=== PATIENT | female | born 1990 | race Caucasian/White ===

== ENCOUNTER 2022-04-02 15:41 | Emergency (ER) | payer OTHER, SELFPAY ==
[2022-04-02 15:51] VITALS: BP 144/86; PULSE 83; RESP 16; TEMP 36.4; O2SAT 100
--- NOTE | 2022-04-02 18:58 | PC.NURSE ---
provider performed pelvic exam and IUD removal with telegraphic typewriter operator chief assist. IUD intact. no complaints by patient.
--- NOTE | 2022-04-02 19:11 | ED.FEMALEGU ---
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 She had a place approximately 2 weeks ago ever since then she has had pelvic cramping and vaginal bleeding she talk to her CLIENT SOLUTIONS DIRECTOR physician recommended she continue to take it and was planning on starting her on additional control for her vaginal bleeding. Patient has had success with control with NuvaRing would like to return to that. Her pain in her pelvis is crampy, constant, no clear aggravating or alleviating factors, no radiation. She denies any fevers chills nausea vomiting diarrhea constipation or urinary symptoms Related Data Allergies Allergy/AdvReac Type Severity Reaction Status Date / Time No Known Allergies Allergy Unverified 04/02/22 17:40 Review of Systems Review of Systems: CONSTITUTIONAL: Denies fever, chills, or sweats. EYES: Denies visual changes, redness, or discharge. ENT: Denies rhinorrhea, congestion, sore throat, or otalgia. CARDIOVASCULAR: Denies chest pain, palpitations, or edema. RESPIRATORY: Denies cough or dyspnea. GASTROINTESTINAL: Denies nausea, vomiting, or diarrhea. GENITOURINARY: Denies dysuria or hematuria. SKIN: Denies rash or itching. MUSCULOSKELETAL: Denies back pain, joint pain, or myalgia. NEUROLOGIC: Denies headache, numbness, dizziness, or weakness. PSYCHIATRIC: Denies anxiety or depression. All systems reviewed & are unremarkable except as noted in HPI and below Exam Narrative: GENERAL: Well-appearing, well-nourished, and in no acute distress. HEAD: Normocephalic, atraumatic. EYES: PERRLA and EOMI. ENT: Nares clear, no rhinorrhea or epistaxis. Mucous membranes moist. NECK: Supple. No masses. 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 No edema. SKIN: Warm, dry, no rash. NEURO: No focal deficits. Alert and oriented x3. PSYCH: Normal mood and affect. Course Vital Signs Vital signs: Vital Signs Temperature 36.4 C 04/02/22 15:51 Pulse Rate 83 04/02/22 15:51 Respiratory Rate 16 04/02/22 15:51 Blood Pressure 144/86 H 04/02/22 15:51 Pulse Oximetry 100 04/02/22 15:51 Oxygen Delivery Room Air 04/02/22 15:51 Temperature 36.4 C 04/02/22 15:51 Pulse Rate 64 04/02/22 19:21 Respiratory Rate 16 04/02/22 19:21 Blood Pressure 119/77 04/02/22 19:21 Pulse Oximetry 98 04/02/22 19:21 Oxygen Delivery Room Air 04/02/22 15:51 Procedures Other Procedure Procedure 1: Other Procedure: Patient requested IUD removal. IUD strings were visualized gentle traction used and IUD removed without incident patient tolerated the procedure well and was scant bleeding from the cervical os after procedure. No cervical injuries appreciated. MDM - Female Genitourinary MDM Narrative Medical decision making narrative: H&P as above, vss, pt looks clinically well, exam with small amount of blood in vaginal vault, labs/img considered, symptomatic relief available as needed, on reevaluation pt continues to looks clinically well. Suspect symptoms related to IUD given patient's time course which was removed today patient felt improved dns significant hemorrhage, perforation. plan to tx/monitor as op w/ pcm f/u findings/plan discussed with pt, pt agree/comfortable with plan, return precautions given Discharge Plan Discharge Clinical Impression: Encounter for IUD removal Condition: Improved Instructions: Intrauterine Device (DC) Additional Instructions: Please return if your symptoms worsen or fail to improve. If you develop a fever, can not eat/drink anything or if you have any other con
[2022-04-02 19:21] VITALS: BP 119/77; PULSE 64; RESP 16; O2SAT 98
== END 2022-04-02 19:22 | disposition home or self-care (01) ==
PROVIDERS: Emergency Provider Emergency Medicine
DX: Z30.432 Encounter for removal of intrauterine contraceptive device (principal)
CPT/HCPCS: 99282

== ENCOUNTER 2023-10-05 10:51 | Emergency (ER) | payer OTHER, SELFPAY ==
--- NOTE | ~2023-10-05 | CT_ITS ---
EXAMINATION: CT abdomen pelvis w con DATE: 10/05/2023 13:02 INDICATION: Right lower quadrant abdominal pain TECHNIQUE: Computed tomography (CT) of the abdomen and pelvis was performed with 100 cc Omnipaque 350 intravenous contrast. The dose-length product was 590.07 mGy-cm. Automated exposure control and iter ative reconstruction technique were employed. COMPARISON: CT dated 05/22/2020. FINDINGS: Lung bases unremarkable. Heart size normal. No significant pleural or pericardial effusion. Fatty infiltration of the liver. Small subcentimeter liver cyst. The spleen, pancreas, adrenal gland s and kidneys are unremarkable. Normal appendix. Trace free fluid in the pelvis. Nonobstructive bowel gas pattern. Moderate colonic fecal loading. No significant vascular abnormality. No lymphadenopathy . Gallbladder is present. No free air. No acute osseous abnormality. IMPRESSION: 1. No acute abdominal abnormality. Reviewed, dictated and finalized at location B. 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
[2023-10-05 11:08] VITALS: BP 125/84; PULSE 101; RESP 18; TEMP 36.7; O2SAT 100
--- NOTE | 2023-10-05 12:11 | ED.ABDPAIN ---
HPI - Abdominal Pain General Chief Complaint: Abdominal Pain Stated Complaint: abd pain, n/v Time Seen by Provider: 10/05/23 11:56 History of Present Illness HPI narrative: Patient is a 33-year-old female with no past medical history here today with abdominal pain. She states that it began yesterday morning and is located across her mid abdomen and into the right lower quadrant. She notes it is associated with decreased appetite, last solid food intake was yesterday, last p.o. intake was a couple sips of water around 7:00 a.m. this morning today. She has had multiple episodes of vomiting, nonbloody. Her last bowel movement was yesterday. No prior abdominal surgeries in the past. No associated diarrhea. She did have a fever at home, T-max 102? F. No associated cough, congestion, urinary symptoms. No vaginal bleeding or discharge. Last menstrual period was 09/16/2023. She did go to an urgent care prior to presentation here in the referred her into the emergency department for further evaluation and testing. Related Data Allergies Allergy/AdvReac Type Severity Reaction Status Date / Time No Known Allergies Allergy Verified 10/05/23 12:05 Review of Systems Review of Systems: All systems reviewed & are unremarkable except as noted in HPI and below Exam Narrative: GENERAL: Well-appearing, well-nourished, and in no acute distress. HEAD: Normocephalic, atraumatic. EYES: PERRLA and EOMI. ENT: Nares clear. Mucous membranes moist. NECK: Supple. CHEST: Clear to auscultation. No respiratory distress. HEART: Regular rate and rhythm. Normal peripheral pulses. ABDOMEN: Soft, periumbilical and RLQ tenderness, no rebound or guarding EXTREMITIES: Normal range of motion. No edema. SKIN: Warm, dry, no rash. NEURO: No focal deficits. Alert and oriented x3. PSYCH: Normal mood and affect. Course Course Emergency Course: Chart review performed. Patient here with abdominal pain x1 day, was reportedly sent here by urgent care, unable to see this visit in our system. Vitals show tachycardia, otherwise within normal limits. Patient seen evaluated, in no acute distress. Differentials include acute appendicitis, gastroenteritis, acute UTI, other intra-abdominal infectious process that could be due to possible viral or bacterial source. CT abdomen pelvis had added triage workup as well as a lactic, IV fluids, morphine, Zofran for symptoms. Bedside negative. Lab work reviewed, no leukocytosis, CMP within normal limits, CRP 2.3, UA negative for UTI. CT negative. Viral swabs negative. Will discharge with primary care follow-up. Will additionally prescribe Zofran and Levsin for symptoms. Advised close follow-up with primary care doctor and returning if any symptoms worsen. The results of pertinent diagnostic studies and exam findings were discussed. The patient?s provisional diagnosis and plan of care were discussed with the patient and present family. The patient notes she feels much better on reevaluation. The patient and/or present family expressed understanding of the diagnosis and plan. The nurse was instructed to provide written instructions and appropriate follow-up information. The patient understands their need and responsibility to obtain additional follow-up as instructed. The risks of medications administered and prescribed were discussed with the patient and family present. Vital Signs Vital signs: Vital Signs Temperature 98.1 F 10/05/23 11:08 Pulse Rate 101 H 10/05/23 11:08 Respiratory Rate 18 10/05/23 11:08 Blood Pressure 125/84 10/05/23 11:08 Pulse Oximetry 100 10/05/23 11:08 Temperature 98.1 F 10/05/23 11:08 Pulse Rate 101 H 10/05/23 11:08 Respiratory Rate 18 10/05/23 11:08 Blood Pressure 125/84 10/05/23 11:08 Pulse Oximetry 100 10/05/23 11:08 MDM - Abdominal Pain Lab Data 10/05/23 12:07 10/05/23 12:07 Labs: Lab Results 10/05/23
[2023-10-05 12:23] LABS: Basophils Percent Auto 0.4 % (0.2-1.2); Eosinophils Absolute Auto 0.1 K/mm3 (0-0.3); Eosinophils Percent Auto 0.9 % (0-4.4); Hematocrit 44.8 % (37.0-47.0); Hemoglobin 14.7 g/dL (12.0-15.0); Immature Granulocyte Absolute 0.02 K/mm3 (0.00-0.031); Immature Granulocyte Percent A 0.4 % (0-0.5); Lymphocytes Absolute Auto 1.21 K/mm3 (0.9-3.2); Mean Corpuscular HGB Conc 32.8 g/dl (32-36); Mean Corpuscular Hemoglobin 29.1 pg (26-34); Mean Corpuscular Volume 88.5 fl (80-100); Mean Platelet Volume 9.3 fl (7.4-10.4); Monocytes Absolute Auto 0.4 K/mm3 (0.1-0.6); Monocytes Percent Auto 7.1 % (2.6-8.5); Neutrophils Absolute Auto 3.8 K/mm3 (1.3-6.7); Neutrophils Percent Auto 69.2 % (45.5-73.1); Platelet Count Result 270 k/mm3 (150-375); Red Blood Count 5.06 M/mm3 (4.2-5.4); Red Cell Distribution Width 12.2 % (11.5-14.5); White Blood Count 5.5 K/mm3 (4.5-10.0)
[2023-10-05 12:24] LABS: Appearance Urine Clear (Clear); Bacteria Urine None Seen /hpf; Bilirubin Urine 1+ (Negative); Blood Urine Negative (Negative); Color Urine Dark Yellow (Yellow); Glucose Urine UA Negative (Negative); Ketones Urine 1+ mg/dL (Negative); Leukocyte Esterase Ur Negative LEU/UL (Negative); Nitrate Urine Negative (Negative); Non Pathogenic Casts 0-2; Protein Urine Trace mg/dL (Negative); Squamous Epithelial Cell Urine Moderate /hpf (Few); WBC Urine 0-5 /hpf; pH Urine 5.5 (5.0-9.0)
[2023-10-05 12:33] LABS: Alanine Aminotransferase 15 U/L (6-35); Albumin Level 4.3 g/dL (3.5-5.1); Alkaline Phosphatase 41 U/L (38-126); Anion Gap 9 mmol/L (8-16); Aspartate Amino Transferase 20 U/L (14-36); Bilirubin,Total 0.6 mg/dL (0.2-1.3); Blood Urea Nitrogen 8 mg/dL (7-17); Calcium 9.1 mg/dL (8.4-10.2); Carbon Dioxide 26 mmol/L (22-30); Chloride 102 mmol/L (98-107); Estimated CRCL calculation 98 ml/min; Estimated Glomerular Filt Rate > 60; Glucose 93 mg/dL (65-110); Lipase 52 U/L (23-300); Potassium 3.4 mmol/L (3.4-5.0); Sodium 137 mmol/L (137-145)
[2023-10-05 12:40] LABS: Add Urine Microscopic? YES
[2023-10-05 13:00] LABS: Prothrombin Time 14.1 Seconds (11.1-14.7)
[2023-10-05 13:01] LABS: Partial Thromboplastin Time 28.4 SECONDS (22.3-36.8)
[2023-10-05] MEDS: SODIUM CHLORIDE 0.9% IV 1,000 ML 999 ML IV CONT (13:05)
[2023-10-05] MEDS: ONDANSETRON INJ 4 MG/2 ML VIAL IV PUSH (13:05)
[2023-10-05] MEDS: MORPHINE SULFATE (*CRX) 4 MG/ML INJ IV PUSH (13:06)
[2023-10-05 13:09] LABS: Lactic Acid Reflex 0.7 mmol/L (0.7-2.0)
[2023-10-05 13:12] LABS: CRP 2.3 mg/dL (<1.0)
[2023-10-05 14:51] LABS: Influenza A QL RT-PCR Negative (Negative); Influenza B QL RT-PCR Negative (Negative); RSV RNA, RT-PCR Negative (Negative); SARS-CoV-2 RNA PCR Negative (Negative)
[2023-10-05 15:25] VITALS: BP 111/73; PULSE 86; RESP 18; O2SAT 99
== END 2023-10-05 15:26 | disposition home or self-care (01) ==
PROVIDERS: Emergency Medicine; Emergency Provider Student in an Organized Health Care Education/Training Program; PCP Nurse Practitioner
DX: R10.33 Periumbilical pain (principal); Z20.822 Contact with and (suspected) exposure to COVID-19
CPT/HCPCS: 36415; 74177; 80053; 81001; 81025; 83605; 83690; 85025; 85610; 85730; 86140; 87637; 96361; 96374; 96375; 99284; J2270; J2405; J7030; Q9967